=== PATIENT | female | born 1940 | race Caucasian/White ===

== ENCOUNTER → 2016-07-11 | Outpatient (CLI) | payer BC ==
[~2016-07-11] MED LIST: CRS/10 PO; LEVO75TA PO; MONT1TAB3 PO; PARO1TAB27 PO; POTA10CA28 PO; TOPI50TA16 PO
[2016-07-11 09:37] LABS: ALKALINE PHOSPHATASE 56 U/L (45-117); ALT/SGPT 25 U/L (12-78); AST/SGOT 19 U/L (15-37); BLOOD UREA NITROGEN 21 mg/dl (7-18); BUN/CREATININE RATIO 18.6 (10-20); CALCIUM 8.7 mg/dl (8.5-10.1); CARBON DIOXIDE 24 mmol/L (21-32); CHLORIDE 111 mmol/L (98-107); CHOLESTEROL 230 mg/dl (0-200); CHOLESTEROL/HDL RATIO 5.9; GLUCOSE 122 mg/dl (70-99); HDL CHOLESTEROL 39 mg/dl; LDL CHOLESTEROL CALCULATED 130 mg/dl; POTASSIUM 4.5 mmol/L (3.5-5.1); SODIUM 145 mmol/L (136-145); TRIGLYCERIDES 305 mg/dl (0-150); VERY LOW DENSITY LIPOPROT CALC 61 mg/dl
[2016-07-11 10:11] LABS: ESTIMATED AVERAGE GLUCOSE 140 mg/dl; HA1C FLAG Normal (Normal)
== END | disposition home or self-care (01) ==
LOC: C.LABFOXMH 08:59
PROVIDERS: ATTEND Internal Medicine
DX: E11.9 Type 2 diabetes mellitus without complications (principal); E03.9 Hypothyroidism, unspecified

== ENCOUNTER → 2016-08-19 | Outpatient (CLI) | payer BC ==
--- NOTE | 2016-08-19 16:24 | MAMMOGRAPHY REPORT ---
BILATERAL DIGITAL SCREENING MAMMOGRAM WITH CAD: 08/19/2016 CLINICAL HISTORY: Routine screening. Patient has no complaints. TECHNIQUE: Bilateral CC and MLO views were obtained. Current study was also evaluated with a Comput er Aided Detection (CAD) system. COMPARISON: Comparison is made to exams dated: 08/14/2015 mammogram, 08/11/2014 mammogram, 08/09/2013 ma mmogram, 08/06/2012 mammogram, 07/25/2011 mammogram, and 07/19/2010 mammogram - [facility] nter. BREAST COMPOSITION: The tissue of both breasts is heterogeneously dense, which may obscure small ma sses. FINDINGS: There are diffuse bilateral benign rim calcifications. No new suspicious mass, architectu ral distortion or cluster of microcalcifications is seen. IMPRESSION: ACR BI-RADS CATEGORY 1: NEGATIVE There is no mammographic evidence of malignancy. A 1 year screening mammogram is recommended. The p atient will receive written notification of the results. Approximately 10% of breast cancers are not detected with mammography. A negative mammographic repor t should not delay biopsy if a clinically suggestive mass is present. Karen Ragland M.D. ay/:08/19/2016 15:10:33 Bricklayer Helper: Jayshree INETO(R)(M), [facility] letter sent: Normal 1/2 BI-RADS Code: ACR BI-RADS Category 1: Negative
== END | disposition home or self-care (01) ==
LOC: C.MAMM 09:30
PROVIDERS: ATTEND Obstetrics & Gynecology
DX: Z12.31 Encounter for screening mammogram for malignant neoplasm of breast (principal)

== ENCOUNTER → 2016-08-20 | Outpatient (CLI) | payer BC ==
--- NOTE | 2016-08-21 17:20 | PULMONARY FUNCTION TEST ---
CLINICAL DATA: A 76-year-old female with a height of 63 inches and a weight of [address] Espino for evaluation of dyspnea and cough. Spirometry pre- and post-bronchodilator, lung volumes and DLCO were performed. FINDINGS: Pre-bronchodilator spirometry is within normal limits. FVC was 91% of predicted. FEV1 was 97% of predicted. [id number] was 113% of predicted. There was improvement after inhaled bronchodilator in [id number]. QQT55-41 improved 36% of predicted to 154% of predicted. Lung volumes demonstrated a reduction in expiratory reserve volume due to obesity. DLCO was normal at 87% of predicted. IMPRESSION: Normal baseline spirometry with improvement in small airway flow after inhaled bronchodilator. This may indicate mild reversible small airways disease. Lung volumes showed reduction in expiratory reserve volume due to obesity. Diffusion capacity was normal. MTDD
== END | disposition home or self-care (01) ==
LOC: C.RC 10:50
PROVIDERS: ATTEND Internal Medicine
DX: R06.02 Shortness of breath (principal)

== ENCOUNTER → 2016-08-30 | Outpatient (CLI) | payer BC | END | disposition home or self-care (01) | LOC: C.LABFOXMH 12:05 | PROVIDERS: ATTEND Internal Medicine | DX: R07.0 Pain in throat (principal); J06.0 Acute laryngopharyngitis ==

== ENCOUNTER → 2016-09-02 | Outpatient (CLI) | payer BC ==
[2016-09-02 13:54] LABS: URINE APPEARANCE CLEAR (CLEAR); URINE BILIRUBIN NEG (NEG); URINE COLOR YELLOW; URINE NITRITE NEG (NEG); URINE PH 6.5 (4.5-7.5); URINE SPECIFIC GRAVITY 1.023 (1.000-1.030); UROBILINOGEN NEG (NEG)
[2016-09-02 13:59] LABS: MANUAL MICROSCOPIC REQUIRED? NO; REVIEW REQ? YES
== END | disposition home or self-care (01) ==
LOC: C.LABFOXMH 13:23
PROVIDERS: ATTEND Obstetrics & Gynecology
DX: R30.0 Dysuria (principal)

== ENCOUNTER → 2016-09-16 | Outpatient (CLI) | payer BC | END | disposition home or self-care (01) | LOC: C.LABFOXMH 08:53 | PROVIDERS: ATTEND Internal Medicine | DX: R19.7 Diarrhea, unspecified (principal) ==

== ENCOUNTER → 2016-10-07 | Outpatient (CLI) | payer BC ==
[2016-10-07 08:39] LABS: BLOOD UREA NITROGEN 23 mg/dl (7-18); BUN/CREATININE RATIO 24.3 (10-20); CARBON DIOXIDE 26 mmol/L (21-32); CHLORIDE 111 mmol/L (98-107); CREATININE 0.94 mg/dl (0.60-1.20); GLUCOSE 113 mg/dl (70-99); POTASSIUM 4.6 mmol/L (3.5-5.1); SODIUM 146 mmol/L (136-145)
[2016-10-07 08:43] LABS: ESTIMATED AVERAGE GLUCOSE 140 mg/dl; HA1C FLAG Normal (Normal)
[2016-10-07 08:45] LABS: CALCIUM 8.8 mg/dl (8.5-10.1)
== END | disposition home or self-care (01) ==
LOC: C.LABFOXMH 07:59
PROVIDERS: ATTEND Internal Medicine
DX: E11.9 Type 2 diabetes mellitus without complications (principal); Z01.419 Encounter for gynecological examination (general) (routine) without abnormal findings; M85.851 Other specified disorders of bone density and structure, right thigh; M85.852 Other specified disorders of bone density and structure, left thigh

== ENCOUNTER → 2016-10-07 | Outpatient (CLI) | payer BC | END | disposition home or self-care (01) | LOC: C.MAMM 14:56 | PROVIDERS: ATTEND Obstetrics & Gynecology | DX: Z01.419 Encounter for gynecological examination (general) (routine) without abnormal findings (principal) ==

== ENCOUNTER → 2017-01-13 | Outpatient (CLI) | payer BC ==
[2017-01-13 09:57] LABS: ALT/SGPT 28 U/L (12-78); AST/SGOT 21 U/L (15-37); BLOOD UREA NITROGEN 20 mg/dl (7-18); BUN/CREATININE RATIO 23.2 (10-20); CALCIUM 9.2 mg/dl (8.5-10.1); CARBON DIOXIDE 27 mmol/L (21-32); CHLORIDE 111 mmol/L (98-107); CREATININE 0.87 mg/dl (0.60-1.20); GLUCOSE 119 mg/dl (70-99); POTASSIUM 4.5 mmol/L (3.5-5.1); SODIUM 143 mmol/L (136-145)
[2017-01-13 09:59] LABS: ALKALINE PHOSPHATASE 67 U/L (45-117)
[2017-01-13 10:08] LABS: ESTIMATED AVERAGE GLUCOSE 131 mg/dl; HA1C FLAG Normal (Normal)
== END | disposition home or self-care (01) ==
LOC: C.LABFOXMH 09:00
PROVIDERS: ATTEND Internal Medicine
DX: E11.9 Type 2 diabetes mellitus without complications (principal); E78.00 Pure hypercholesterolemia, unspecified

== ENCOUNTER → 2017-04-17 | Outpatient (CLI) | payer BC ==
[2017-04-17 09:37] LABS: ESTIMATED AVERAGE GLUCOSE 140 mg/dl; HA1C FLAG Normal (Normal)
[2017-04-17 09:44] LABS: URIC ACID 5.9 mg/dl (2.6-7.2)
[2017-04-17 11:00] LABS: LYME DISEASE AB IGG NEG (NEG); LYME DISEASE AB IGM NEG (NEG)
== END ==
LOC: C.LABFOXMH 09:13
PROVIDERS: ATTEND Internal Medicine Hospice and Palliative Medicine
DX: E11.9 Type 2 diabetes mellitus without complications (principal)

== ENCOUNTER → 2017-07-09 | Outpatient (CLI) | payer BC ==
[2017-07-09 08:20] LABS: HEMATOCRIT 42.3 % (37-47); HEMOGLOBIN 13.4 g/dL (12.0-16.0); MEAN CELL VOLUME 97.5 fL (80-100); MEAN CORPUSCULAR HEMOGLOBIN 30.9 pg (25-34); MEAN CORPUSCULAR HGB CONC 31.7 g/dl (32-36); MEAN PLATELET VOLUME 9.3 fL (7.4-10.4); PLATELET COUNT 206 K/uL (130-400); RED CELL DISTRIBUTION WIDTH CV 14.1 % (11.5-14.5); RED CELL DISTRIBUTION WIDTH SD 50.1 fL (36.4-46.3); WHITE BLOOD COUNT 5.84 K/uL (4.8-10.8)
[2017-07-09 08:28] LABS: BLOOD UREA NITROGEN 18 mg/dl (7-18); CALCIUM 8.8 mg/dl (8.5-10.1); CARBON DIOXIDE 25 mmol/L (21-32); CHOLESTEROL 222 mg/dl (0-200); CREATININE 0.81 mg/dl (0.60-1.20); GLUCOSE 119 mg/dl (70-99); POTASSIUM 4.4 mmol/L (3.5-5.1); SODIUM 142 mmol/L (136-145)
[2017-07-09 09:34] LABS: HEMOGLOBIN A1C 6.3 % (4.5-5.6)
== END | disposition home or self-care (01) ==
LOC: C.LABFOXMH 08:02
PROVIDERS: ATTEND Internal Medicine Hospice and Palliative Medicine
DX: E11.9 Type 2 diabetes mellitus without complications (principal); E78.00 Pure hypercholesterolemia, unspecified; I10 Essential (primary) hypertension; D64.9 Anemia, unspecified

== ENCOUNTER → 2017-08-25 | Outpatient (CLI) | payer BC ==
--- NOTE | 2017-08-26 07:38 | MAMMOGRAPHY REPORT ---
BILATERAL DIGITAL SCREENING MAMMOGRAM TOMOSYNTHESIS WITH CAD: 08/25/2017 CLINICAL HISTORY: Routine screening. Patient has no complaints. TECHNIQUE: Breast tomosynthesis in addition to standard 2D mammography was performed. Current study was also evaluated with a Computer Aided Detection (CAD) system. COMPARISON: Comparison is made to exams dated: 08/19/2016 mammogram, 08/14/2015 mammogram, 08/11/2014 ma mmogram, 08/09/2013 mammogram, 08/06/2012 mammogram, and 07/25/2011 mammogram - [facility] er. BREAST COMPOSITION: The tissue of both breasts is heterogeneously dense, which may obscure small mas ses. FINDINGS: There are diffuse bilateral benign rim calcifications in the breasts. No suspicious mass, architectural distortion or cluster of suspicious microcalcifications is seen. IMPRESSION: ACR BI-RADS CATEGORY 1: NEGATIVE There is no mammographic evidence of malignancy. A 1 year screening mammogram is recommended. The pa tient will receive written notification of the results. Approximately 10% of breast cancers are not detected with mammography. A negative mammographic report should not delay biopsy if a clinically suggestive mass is present. Karen Ragland M.D. ay/:08/25/2017 12:13:42 Keymodule Assembly Supervisor: Jayshree NIETO(Yue)(Sd), [facility] letter sent: Normal 1/2 BI-RADS Code: ACR BI-RADS Category 1: Negative
== END | disposition home or self-care (01) ==
LOC: C.MAMM 09:23
PROVIDERS: ATTEND Obstetrics & Gynecology
DX: Z12.31 Encounter for screening mammogram for malignant neoplasm of breast (principal)

== ENCOUNTER → 2017-12-04 | Outpatient (CLI) | payer BC ==
[2017-12-04 10:08] LABS: ALBUMIN 3.7 gm/dl (3.4-5.0); ALKALINE PHOSPHATASE 59 U/L (45-117); ALT/SGPT 24 U/L (12-78); AST/SGOT 20 U/L (15-37); BLOOD UREA NITROGEN 21 mg/dl (7-18); CALCIUM 8.8 mg/dl (8.5-10.1); CARBON DIOXIDE 25 mmol/L (21-32); CHOLESTEROL 207 mg/dl (0-200); CREATININE 0.84 mg/dl (0.60-1.20); GLUCOSE 132 mg/dl (70-99); POTASSIUM 4.3 mmol/L (3.5-5.1); SODIUM 141 mmol/L (136-145); TOTAL PROTEIN 6.8 gm/dl (6.4-8.2)
[2017-12-04 10:38] LABS: HEMOGLOBIN A1C 6.4 % (4.5-5.6)
== END | disposition home or self-care (01) ==
LOC: C.LABFOXMH 09:12
PROVIDERS: ATTEND Internal Medicine
DX: E11.9 Type 2 diabetes mellitus without complications (principal); E78.5 Hyperlipidemia, unspecified

== ENCOUNTER 2019-11-11 05:27 | Observation (INO) ==
--- NOTE | 2019-11-05 14:54 | Anesthesiology Consultation ---
Date of Service November 05, 2019 Assessment & Plan (1) Encounter for pre-operative examination: Per nursing phone assessment on 10/28: Travel screen- negative. No known COVID- 19 positive contacts. No current COVID-19 related symptoms. No hx of COVID-19 testing in past 30 days. - Check BSG AM DOS - Preop testing: Still awaiting preop testing. If not received prior to DOS, will order for AM DOS (CBC, BMP, EKG). Chart Review Chart Review: Acceptable Risk for Surgery (pending preop testing) and Patient NOT seen in Pre Admission Testing History Surgery Operation Date: 11/11/19 10:40 Proposed Procedures p Diagnostic Laparoscopy, Possible Laparoscopic Cholecystectomy - Chris Gregory, DO Height/Weight Height: 5 ft 3 in Weight: 74.843 kg Allergies Allergy/AdvReac Type Severity Reaction Status Date / Time meperidine Allergy Severe SHORTNESS Verified 10/29/19 14:48 OF BREATH/SEVERE WASSERMAN Anesthetics - Amide Type AdvReac Unknown DELIRIUM Verified 10/29/19 14:48 morphine AdvReac Unknown DELIRIUM Verified 11/05/19 14:51 Medications Home Medications Medication Instructions Recorded Confirmed Last Taken cholecalciferol (vitamin D3) 1,250 1,250 mcg PO QAM 10/19/19 10/29/19 Unknown mcg (50,000 unit) capsule coenzyme Q10 200 mg capsule 200 mg PO QAM 10/19/19 10/29/19 Unknown montelukast 10 mg tablet 10 mg PO QAM 10/19/19 10/29/19 Unknown topiramate 50 mg tablet 50 mg PO BID 10/19/19 10/29/19 Unknown ascorbic acid (vitamin C) [Vitamin 1 g PO QAM 10/29/19 10/29/19 Unknown C] candesartan 8 mg PO QAM 10/29/19 10/29/19 Unknown cholecalciferol (vitamin D3) 50 mcg PO QAM 10/29/19 10/29/19 Unknown [Vitamin D3] esomeprazole magnesium [Nexium] 40 mg PO QAM 10/29/19 10/29/19 Unknown fish,bora,flax oils-om3,6,9no1 1 cap PO QAM 10/29/19 10/29/19 Unknown [Bath 3-6-9] levothyroxine 75 mcg PO QAM 10/29/19 10/29/19 Unknown magnesium 250 mg PO QAM 10/29/19 10/29/19 Unknown paroxetine HCl [Paxil] 30 mg PO QAM 10/29/19 10/29/19 Unknown potassium gluconate 600 mg PO QAM 10/29/19 10/29/19 Unknown rosuvastatin [Crestor] 10 mg PO HS 10/29/19 10/29/19 Unknown Past Medical History Medical History Asthma Diabetes mellitus, type 2 diet controlled GERD (gastroesophageal reflux disease) Hyperlipidemia Hypertension Hypothyroidism Kidney stones hx of and passed on own Migraine Osteoarthritis Past Family History Family History Mother Hypertension Brother Hypertension Aunt Diabetes Past Surgical History Surgical History H/O adenoidectomy H/O hernia repair H/O shoulder surgery H/O sinus surgery H/O wrist surgery H/O: hysterectomy History of hand surgery surgery to many digits History of parathyroid surgery Hx of appendectomy Hx of cataract surgery left and right Hx of tonsillectomy Social History Smoking Status: Never smoker Do You Dip or Chew Tobacco: No Hx Alcohol Use: No Hx Substance Use: No substance use type: does not use
[2019-11-11] MEDS ORDERED: LR 15ML/HR IV SCH (06:00)
[2019-11-11] MEDS ORDERED: CEFAZOLIN 2000MG 2,000 MG/15 ML SYR IV SCH (06:00)
[2019-11-11] MEDS ORDERED: ROCURONIUM BROMIDE 10 MG/ML 5 ML VIAL IV ONE (06:26)
[2019-11-11] MEDS ORDERED: ONDANSETRON INJ 2 MG/ML 2 ML VIAL ONE (06:26)
[2019-11-11] MEDS ORDERED: fentaNYL citrate 100 MCG/2 ML VIAL ONE (06:26)
[2019-11-11] MEDS ORDERED: PROPOFOL IV EMULSION 10 MG/ML 20 ML VIAL IV ONE (06:26)
[2019-11-11] MEDS ORDERED: GLYCOPYRROLATE 0.2 MG/ML VIAL ONE (06:26)
[2019-11-11] MEDS ORDERED: NEOSTIGMINE METHYLSULFATE 5 MG/5 ML SYR ONE (06:26)
[2019-11-11] MEDS ORDERED: LIDOCAINE HCL 2% 2 ML VIAL/AMP(20MG/ML) INFIL ONE (06:26)
[2019-11-11] MEDS ORDERED: DEXAMETHASONE SOD INJ 4 MG/ML VIAL ONE (06:26)
[2019-11-11] MEDS ORDERED: BUPIVACAINE 0.5 % 5 MG/1 ML MPF 30ML VIAL ONE (06:42)
[2019-11-11] MEDS ORDERED: EPINEPHrine INJ 1 MG/ML AMP ONE (06:42)
--- NOTE | 2019-11-11 06:53 | History & Physical Bridge Note ---
Date of Service November 11, 2019 History & Physical Bridge Note I have examined the patient, reviewed the History & Physical and in the interval since the performance of the History & Physical I have noted the following changes of clinical significance: no changes noted
[2019-11-11] MEDS ORDERED: fentaNYL citrate 100 MCG/2 ML VIAL IV PRN (07:52)
[2019-11-11] MEDS ORDERED: ATROPINE SULFATE 0.1 MG/ML 10ML SYR IV PRN (07:52)
[2019-11-11] MEDS ORDERED: ePHEDrine sulfate 50 MG/ML AMP IV PRN (07:52)
[2019-11-11] MEDS ORDERED: ONDANSETRON INJ 2 MG/ML 2 ML VIAL IV PRN ×2 (07:52→08:06)
[2019-11-11] MEDS ORDERED: HYDROCODONE/ACETAMOPHEN 5/325MG TAB PO PRN ×2 (08:06)
[2019-11-11] MEDS ORDERED: HYDROmorphone INJ 0.5 MG/0.5 ML SYR IV PRN (08:06)
[2019-11-11] MEDS ORDERED: SODIUM CHLORIDE 0.9% 1000ML 1,000 ML IV SCH (08:20)
--- NOTE | 2019-11-11 08:34 | Operative Report ---
PG Post Operative Report Pre & Post Diagnosis Operation Date: 11/11/19 07:00 Pre-Op Diagnosis: Abdominal Pain Post-Op Diagnosis: Abdominal Pain; cholecystitis;abnormal appearance to liver I identified the patient and participated in the time-out.: Yes Procedure Operation Date: 11/11/19 07:00 Actual Procedures p Diagnostic Laparoscopy, Laparoscopic Cholecystectomy(Not Applicable); right lobe liver biopsy - Chris Gregory DO Surgeon Chris Gregory DO Tip Cutter belem Paz Estimated Blood Loss 15 Findings Consistent with Post-Op Diagnosis Specimens 1. gallbladder 2. liver bx Description of Procedure After informed consent was obtained the patient was taken to the operating room and placed in supine position. After successful intubation the abdomen was sterilely prepped and draped in usual fashion. A supraumbilical incision was made with an 11 blade scalpel and carried down through the soft tissue using cautery. The anterior rectus fascia was opened using cautery and two #0 Vicryl stay sutures were placed. Peritoneum was entered using blunt finger penetration and a finger sweep performed to take down any underlying adhesions. A 12 mm Parr trocar was placed and the abdomen was insufflated to 18 mmHg. The laparoscope was inserted and the abdomen examined in 360 degrees. A subxiphoid 5 mm port and 2 right upper quadrant 5 mm ports were placed. As I looked around the abdomen there were 2 areas of abnormality. The liver was abnormal with at least fatty infiltration potentially early cirrhosis as well as a simple cyst on the right lobe of the liver. There were also adhesions around the gallbladder itself with an abnormal appearance to the serosa of the gallbladder itself. The patient was placed in a reverse Trendelenburg position. The stomach spleen other peritoneal surfaces bowel etc. all appeared normal. There was no evidence of a hiatal hernia. I decided to go ahead and remove the gallbladder. It was grasped and elevated superiorly and laterally. A [place] dissector was used to take down the adhesions around the body and neck of the gallbladder. I was able to skeletonize the cystic duct and clipped it twice proximally once distally and transected. In similar fashion the cystic artery was delineated clipped and divided. The gallbladder was removed from the gallbladder fossa intact. It was placed into an Endo Catch bag and removed from the camera port site. Any small bleeding points on the liver were controlled using cautery and a thorough irrigation was performed. There was adequate hemostasis. I used a Tj-Cut needle biopsy device to come in through a right upper quadrant stab incision to remove several core biopsies of the right lobe of the liver to send the pathology. This bleeding was also controlled using cautery. A final irrigation was performed there was no evidence of bile leakage or bleeding. A final look around the abdomen showed no other abnormalities. The trochars were all removed and the abdomen desufflated. The fascia of the camera port was closed using 0 Vicryl in a [id number]-[id number]-[id number] fashion. All the wounds were irrigated and closed using 4-0 Monocryl. Marcaine with epinephrine was injected around the incisions for postoperative analgesia. Skin glue was used as a dressing. The patient was awakened extubated and transferred recovery in stable condition. My physician glass ribbon machine operator assistant was present for the entire case. He helped prep the patient. He helped with retraction of the gallbladder during my dissection and removal as well as with wound closure and dressing placement. I attest to the content of the Intraoperative Record and any orders documented therein. Any exceptions are noted below.
[2019-11-11] MEDS ORDERED: HYDROmorphone INJ 1 MG/ML SYRINGE ONE (08:50)
[2019-11-11] MEDS ORDERED: HYDROmorphone INJ 1 MG/ML SYRINGE IV PRN (08:51)
[2019-11-11] MEDS ORDERED: ACETAMINOPHEN 1,000 MG/100 ML VIAL IV STA (09:10)
[2019-11-11] MEDS ORDERED: ACETAMINOPHEN 1000 MG/100 ML IV IV ONE (09:11)
--- NOTE | 2019-11-11 09:46 | Anesthesiology Progress Note ---
Date of Service November 11, 2019 Anesthesia Post Procedure Vital Signs Vital Signs: Temp Pulse Pulse Resp BP BP Pulse Ox 11/11/19 09:30 73 18 149/62 H 93 11/11/19 09:20 67 17 141/66 H 94 11/11/19 09:10 72 19 152/61 H 94 11/11/19 09:00 71 22 162/75 H 94 11/11/19 08:50 70 21 145/70 H 94 11/11/19 08:40 70 20 157/67 H 92 11/11/19 08:30 68 18 181/77 H 99 11/11/19 08:20 64 17 183/95 H 99 11/11/19 08:10 36.2 C L 76 23 195/99 H 99 11/11/19 05:55 36.7 C 69 18 129/69 96 Pain Intensity Abdomen: Pain Intensity: 6 Transfer of Care Handoff Completed per policy Notes Mental Status: alert / awake / arousable and participated in evaluation Patient Amnestic to Procedure: Yes Nausea / Vomiting: adequately controlled Pain: improving with treatment Airway Patency, RR, SpO2: stable & adequate BP & HR: stable & adequate Hydration State: stable & adequate Anesthetic Complications: no major complications apparent and Pt Satisfied with anesthetic care
[2019-11-11] MEDS: LACTATED RINGER'S 1,000 ML IV SCH (14:04)
[2019-11-11] MEDS: HYDROmorphone INJ 0.5 MG/0.5 ML SYR IV PRN (14:09)
[2019-11-11] MEDS ORDERED: CANDESARTAN: ORDER AWAITING ACTION SCH (16:00)
[2019-11-11] MEDS ORDERED: [UNRECOGNIZED DRUG - REMARK] SCH (16:00)
[2019-11-11] MEDS: ROSUVASTATIN CALCIUM 10 MG TAB PO SCH (20:12)
[2019-11-11] MEDS: TOPIRAMATE 50 MG TAB PO SCH (20:12)
[2019-11-12] MEDS: LEVOTHYROXINE SODIUM 75 MCG TABLET PO SCH (05:35)
--- NOTE | 2019-11-12 07:19 | Surgery Progress Note ---
Date of Service November 12, 2019 Assessment & Plan (1) Abdominal pain: pod 1 pt concerned about being able to go home where she lives alone will re-eval later today for poss d/c Dr. Villanueva covering this weekend if pt unable to be d/c'd later today Subjective pt seen. appears reasonably comfortable. "tired" "dry mouth" Physical Exam Physical Exam: alert. nad abd: soft. expected soreness. Results & Data Vital Signs (Past 12 Hours) Vital Signs Temp Pulse Pulse Resp BP Pulse Ox 11/12/19 06:56 36.7 C 80 18 111/62 93 11/12/19 04:07 37.1 C 93 H 14 108/55 L 83 L 11/11/19 23:02 36.8 C 81 14 126/68 92 11/11/19 19:32 36.9 C 83 18 118/67 95 PG Care Time/CCT Total # of Minutes Spent Total Time Spent with Patient: Total time spent is greater than 50% in coordination of care (as documented) at patient's floor/unit and/or counseling patient: Coding Level of Care Code None Diagnoses Abdominal pain R10.9
--- NOTE | 2019-11-12 07:53 | Anesthesiology Progress Note ---
Date of Service November 12, 2019 Anesthesia Post Procedure Vital Signs Vital Signs: Temp Pulse Pulse Pulse Resp BP Pulse Ox 11/12/19 06:56 36.7 C 80 18 111/62 93 11/12/19 04:07 37.1 C 93 H 14 108/55 L 83 L 11/11/19 23:02 36.8 C 81 14 126/68 92 11/11/19 19:32 36.9 C 83 18 118/67 95 11/11/19 16:30 36.5 C 84 18 143/79 H 95 11/11/19 15:30 36.5 C 84 18 172/70 H 97 11/11/19 14:32 36.4 C L 77 18 158/78 H 97 11/11/19 14:04 36.4 C L 62 16 162/84 H 97 11/11/19 13:31 36.7 C 65 15 146/82 H 97 11/11/19 13:20 65 16 97 11/11/19 12:00 36.8 C 64 16 148/65 H 86 L 11/11/19 11:00 65 16 149/57 H 95 11/11/19 10:30 63 18 143/57 H 96 11/11/19 10:14 36.9 C 69 18 144/65 H 95 11/11/19 09:50 74 20 149/68 H 93 11/11/19 09:40 36.4 C L 73 19 143/58 H 93 11/11/19 09:30 73 18 149/62 H 93 11/11/19 09:20 67 17 141/66 H 94 11/11/19 09:10 72 19 152/61 H 94 11/11/19 09:00 71 22 162/75 H 94 11/11/19 08:50 70 21 145/70 H 94 11/11/19 08:40 70 20 157/67 H 92 11/11/19 08:30 68 18 181/77 H 99 11/11/19 08:20 64 17 183/95 H 99 11/11/19 08:10 36.2 C L 76 23 195/99 H 99 Pain Intensity Abdomen: Pain Intensity: 0 Notes Mental Status: alert / awake / arousable and participated in evaluation Patient Amnestic to Procedure: Yes Nausea / Vomiting: adequately controlled Pain: adequately controlled Airway Patency, RR, SpO2: stable & adequate BP & HR: stable & adequate Hydration State: stable & adequate Anesthetic Complications: no major complications apparent
[2019-11-12] MEDS: TOPIRAMATE 50 MG TAB PO SCH ×2 (08:34→20:10)
[2019-11-12] MEDS: PANTOprazole 40 MG TAB PO SCH (08:34)
[2019-11-12] MEDS: PAROXETINE HCL 20 MG PO SCH (08:35)
[2019-11-12] MEDS: MONTELUKAST SODIUM 10 MG TABLET PO SCH (08:35)
[2019-11-12] MEDS: CANDESARTAN CILEXETIL 8 MG PO SCH (08:36)
[2019-11-12] MEDS: LACTATED RINGER'S 1,000 ML IV SCH (08:41)
[2019-11-12] MEDS: ACETAMINOPHEN 500 MG TAB PO PRN ×2 (08:53→20:12)
[2019-11-12] MEDS ORDERED: NON-FORMULARY MEDICATION (Magnesium 250 MG) PO SCH (09:00)
[2019-11-12] MEDS ORDERED: NON-FORMULARY MEDICATION (Potassium Gluconate 600 MG) PO SCH (09:00)
[2019-11-12] MEDS: ROSUVASTATIN CALCIUM 10 MG TAB PO SCH (20:10)
[2019-11-12] MEDS: HYDROmorphone INJ 0.5 MG/0.5 ML SYR IV PRN (23:14)
[2019-11-13] MEDS: LEVOTHYROXINE SODIUM 75 MCG TABLET PO SCH (05:57)
[2019-11-13] MEDS: ACETAMINOPHEN 500 MG TAB PO PRN ×2 (05:58→13:13)
[2019-11-13] MEDS: CANDESARTAN CILEXETIL 8 MG PO SCH (09:14)
[2019-11-13] MEDS: TOPIRAMATE 50 MG TAB PO SCH (09:15)
[2019-11-13] MEDS: PAROXETINE HCL 20 MG PO SCH (09:15)
[2019-11-13] MEDS: PANTOprazole 40 MG TAB PO SCH (09:15)
[2019-11-13] MEDS: MONTELUKAST SODIUM 10 MG TABLET PO SCH (09:15)
--- NOTE | 2019-11-13 09:21 | Surgery Progress Note ---
Date of Service November 13, 2019 Assessment & Plan (1) Abdominal pain: POD#2 laparoscopic cholecystectomy and liver biopsy patient doing well tolerating diet incisions c/d/i pain controlled with tylenol will plan for discharge to home today discharge instructions given and patient to follow up with Dr. Gregory in 1-2 weeks Subjective Patient says she slept well. She is tolerating a regular diet without nausea/vomiting. Her pain is controlled, having some incisional pain on the right side. Physical Exam Physical Exam: awake/alert Gastrointestinal (Abdomen): Inspection/Auscultation: + abdominal surgical incision (c/d/i with dermabond overtop); abdomen not distended Percussion/Palpation: + abdomen tender (minimal tenderness to palpation of right abdomen) and abdomen soft Results & Data Vital Signs (Past 12 Hours) Vital Signs Temp Pulse Resp BP Pulse Ox 11/13/19 07:02 36.8 C 78 16 124/78 92 11/12/19 23:10 37 C 86 16 108/63 90 PG Care Time/CCT Total # of Minutes Spent Total Time Spent with Patient: Total time spent is greater than 50% in coordin ation of care (as documented) at patient's floor/unit and/or counseling patient: Coding Level of Care Code None Diagnoses Abdominal pain R10.9
--- NOTE | 2019-11-18 15:57 | Discharge Summary ---
Date of Service November 18, 2019 Principal Diagnosis Cholecystitis Discharge Exam Gastrointestinal (Abdomen) Inspection/Auscultation: + abdominal surgical incision (clean, dry) Percussion/Palpation: abdomen soft Discharge Data Allergies Allergy/AdvReac Type Severity Reaction Status Date / Time meperidine Allergy Severe SHORTNESS Verified 11/11/19 05:46 OF BREATH/SEVERE WASSERMAN Anesthetics - Amide Type AdvReac Intermediate DELIRIUM Verified 11/11/19 05:46 morphine AdvReac Intermediate DELIRIUM Verified 11/11/19 05:46 Procedures Performed Operation Date: 11/11/19 07:00 Actual Procedures p Diagnostic Laparoscopy, Laparoscopic Cholecystectomy(Not Applicable) - Chris Gregory DO Hospital Course (1) Abdominal pain: 79 y/o female was taken to the operating room for elective cholecystectomy. While in recovery she continued to require IV analgesics and was admitted for overnight observation. The next day she was slow to progress and was kept another 24 hours. On postoperative day two she was tolerating diet and oral analgesics and she was stable for discharge home. Total Time Total Time Spent Total Time Spent (In Minutes): 10 Discharge Plan Discharge Items Patient Disposition: Home - Self-Care Reason For Visit: Abdominal Pain Discharge Diagnosis: laparoscopic cholecystectomy biopsy of liver Activity: As commented below Lifting: No more than 10 pounds Bathing: No limitations Driving/Machine Use: Resume 3 days after discharge Non-emergency contact: Surgeon Call non-emergency contact if: you have any medication questions, your pain is not controlled, your temperature is above 101.5 and your wound has increased redness Follow-up/Referrals: Chris Gregory DO [Surgeon] - (Call the office if you do not already have an appt within 2 weeks) Kathrin Adair [Primary Care Provider] - Diet: Regular Addtl Attending Provider Instructions: You may take Tylenol and/or Ibuprofen over the counter if needed for pain. - Tylenol 650mg orally every 6 hours, as needed for pain. You should NOT exceed more than 3grams of Acetaminophen within a 24 hour time period. - Ibuprofen 200mg-400mg orally every 6-8 hours as needed for pain. Pending Studies at Discharge: No Stand-Alone Forms: Anesthesia/Sedation, Adult, [facility] Medications and DC Order Prescriptions: Continued cholecalciferol (vitamin D3) 1,250 mcg (50,000 unit) capsule 1,250 mcg PO QAM RF: 0 coenzyme Q10 200 mg capsule 200 mg PO QAM RF: 0 topiramate 50 mg tablet 50 mg PO BID RF: 0 montelukast 10 mg tablet 10 mg PO QAM RF: 0 ascorbic acid (vitamin C) [Vitamin C] 1,000 mg Tablet 1 g PO QAM RF: 0 levothyroxine 75 mcg Tablet 75 mcg PO QAM RF: 0 paroxetine HCl [Paxil] 30 mg Tablet 30 mg PO QAM RF: 0 esomeprazole magnesium [Nexium] 40 mg Capsule,Delayed Release(Dr/Ec) 40 mg PO QAM RF: 0 magnesium 250 mg Tablet 250 mg PO QAM RF: 0 candesartan 8 mg Tablet 8 mg PO QAM RF: 0 rosuvastatin [Crestor] 10 mg Tablet 10 mg PO HS RF: 0 cholecalciferol (vitamin D3) [Vitamin D3] 50 mcg (2,000 unit) Tablet 50 mcg PO QAM RF: 0 potassium gluconate 600 mg (99 mg) Tablet 600 mg PO QAM RF: 0 [place] 3-6-9 1,200 mg Capsule 1 cap PO QAM RF: 0 Discharge Orders: Discharge Order (Routine); Ordered 11/13/19 Ordered By: Cecilia Lyons/Other Patient Handouts: DVT Post Op Prevention, Cholecystectomy Laparoscopic Dc Admission Data Admit Date/Time: 11/11/19 13:28 Attending Provider: Chris Gregory Admit Provider: Chris Gregory Primary Care Provider: Kathrin Adair Other Providers: Rj Paz Jr Other Interventions: Discharge Summary Assessment (RN) Last Done: 11/13/19 13:26 DC Date/Time DO NOT enter until pt leaves facility: 11/13/19 14:00 Coding Level of Care Code D/C Day Management <30 mins Diagnoses Abdominal pain R10.9
== END 2019-11-13 14:00 | disposition home or self-care (01) ==
LOC: 3W 05:27 → ASU 05:27